=== PATIENT | male | born 1955 | race African-American/Black ===

== ENCOUNTER 2022-11-15 02:28 | Emergency (ER) | payer MEDICARE ==
[2022-11-15] MEDS ORDERED: MAGNESIUM/ALUMINUM HYDROXIDE/SIMETHICONE 30ML UDC PO ONE (05:15)
[2022-11-15] MEDS ORDERED: VISCOUS LIDOCAINE 2% 15 ML UDC PO ONE (05:15)
[2022-11-15] MEDS ORDERED: MAG-55 MT (05:42)
[2022-11-15 05:54] VITALS: BP 124/78
== END 2022-11-15 05:50 | disposition home or self-care (01) ==
LOC: ER 02:28
DX: B34.9 Viral infection, unspecified (principal); R09.82 Postnasal drip; K21.9 Gastro-esophageal reflux disease without esophagitis
CPT/HCPCS: 93005; 99283